=== PATIENT | male | born 1980 | race African-American/Black ===

== ENCOUNTER 2017-08-25 01:58 | Emergency (ER) | payer SELFPAY ==
[~2017-08-25] VITALS: Ht 170.2 cm; Wt 63.6 kg
[~2017-08-25 01:58] MED LIST: CEPHALEXIN500 M1 PO; NAPROSYN500 MG PO; PEN-VEE K500 MG PO; PERCOCET 325 MG1 TA2 PO; PREDNISONE20 MG PO
[2017-08-25 02:12] VITALS: TEMP 98.6
[2017-08-25 04:52] LABS: BASO % 0.9 % (0.0-2.0); EOS # 0.1 (0.0-0.7); EOS % 1.1 % (0-4.0); GRAN # 1.9 (1.4-6.5); GRAN % 42.4 % (42.2-75.2); HEMOGLOBIN 11.2 g/dl (13.5-18.0); LYMPH % 45.1 % (20.0-51.0); MEAN CELL VOLUME 96 fl (80.0-100.0); MEAN CORPUSCULAR HEMOGLOBIN 32 pg (27.0-31.0); MEAN CORPUSCULAR HGB CONC 33 g/dl (33.0-37.0); MEAN PLATELET VOLUME 10.4 fl (7.4-10.4); MONO # 0.5 (0.1-0.6); MONO % 10.3 % (1.7-9.3); PLATELET COUNT 184 K/mm3 (130-400); RED BLOOD COUNT 3.53 M/mm3 (4.20-5.60); REDCELL DISTRIBUTION WIDTH-CV 13.5 % (11.5-14.5)
[2017-08-25 05:06] LABS: ALANINE AMINOTRANSFERASE 33 U/L (21-72); ALBUMIN 4.3 gm/dL (3.5-5.0); ALKALINE PHOSPHATASE 77 U/L (50-136); ANION GAP 14 mmol/L (7-16); AST,SGOT 40 U/L (15-37); BILIRUBIN,TOTAL 2.2 mg/dL (0.0-1.0); BLOOD UREA NITROGEN 20 mg/dL (9-20); CALCIUM 9.9 mg/dL (8.4-10.2); CARBON DIOXIDE 29 mmol/L (22-30); CHLORIDE 99 mmol/L (98-107); CREATININE, serum 1.36 mg/dL (0.66-1.25); GLUCOSE 92 mg/dL (74-106); LIPASE 154 U/L (23-300); MAGNESIUM 1.5 mg/dL (1.6-2.3); POTASSIUM 3.9 mmol/L (3.4-5.0); SODIUM 142 mmol/L (137-145); TOTAL PROTEIN 8.9 gm/dL (6.4-8.2)
[2017-08-25 05:18] LABS: ALCOHOL(ethanol),MEDICAL < 10 mg/dL; TROPONIN-I < 0.012 ng/mL (0.000-0.034)
[2017-08-25] MEDS ORDERED: PROTONIX 40MG T40 MG PO (05:40)
[2017-08-25] MEDS ORDERED: ZITHROMAX 250M250 MG PO (05:40)
[2017-08-25 05:57] VITALS: BP 113/89; PULSE 85
== END 2017-08-25 06:12 | disposition home or self-care (01) ==
LOC: COL.ER 01:58
PROVIDERS: Emergency Medicine
DX: R20.2 Paresthesia of skin (principal); J40 Bronchitis, not specified as acute or chronic; R07.89 Other chest pain; F10.10 Alcohol abuse, uncomplicated; F17.210 Nicotine dependence, cigarettes, uncomplicated; Y90.0 Blood alcohol level of less than 20 mg/100 ml

== ENCOUNTER 2018-11-16 18:26 | Emergency (ER) | payer SELFPAY ==
[~2018-11-16] VITALS: Ht 170.2 cm; Wt 64.1 kg
[~2018-11-16 18:26] MED LIST changes: +PROTONIX 40MG T40 MG PO; +ZITHROMAX 250M250 MG PO
[2018-11-16 18:32] VITALS: BP 105/75; TEMP 97.1
[2018-11-16] MEDS ORDERED: CEPHALEXIN500 M1 PO (20:26)
[2018-11-16 20:38] VITALS: PULSE 88
== END 2018-11-16 20:41 | disposition home or self-care (01) ==
LOC: COL.ER 18:26
DX: S51.012A Laceration without foreign body of left elbow, initial encounter (principal); F17.210 Nicotine dependence, cigarettes, uncomplicated; Z88.0 Allergy status to penicillin; W45.0XXA Nail entering through skin, initial encounter; Y92.009 Unspecified place in unspecified non-institutional (private) residence as the place of occurrence of the external cause